=== PATIENT | female | born 1960 | race Hispanic/Latino ===

== ENCOUNTER 2021-04-19 06:00 | Day surgery (SDC) | payer MEDICAID ==
[~2021-04-19] VITALS: Ht 154.9 cm; Wt 86.2 kg
[~2021-04-19 06:00] MED LIST: ASPI-1197 PO; ATOR10TA69 PO; BACL5TAB PO; BENZ-70 PO; FOLI0.8T2 PO; MELO-106 PO; MONT-39 PO; ONDA4TAB4 PO; PANT40TA54 PO; ROPI2TAB29 PO; SENN-295 PO; vitamin d2 PO
[2021-04-19] MEDS ORDERED: 0.9%NACL 1000ML 1,000 ML IV ONE (06:20)
[2021-04-19 06:44] VITALS: BP 119/63
[2021-04-19] MEDS ORDERED: GABA-533 PO (07:13)
[2021-04-19] MEDS ORDERED: LIDOCAINE HCL 1% 20 ML VIAL ONE (07:54)
[2021-04-19] MEDS ORDERED: PROPOFOL 10 MG/ML 20ML VIAL IV ONE (07:54)
[2021-04-19 08:10] VITALS: BP 118/90
[2021-04-19 08:15] VITALS: BP 119/46
[2021-04-19 08:20] VITALS: BP 102/51
[2021-04-19 08:25] VITALS: BP 122/69
== END 2021-04-19 08:40 | disposition home or self-care (01) ==
LOC: ENDO 06:00 → DAH 06:00 → EDSTATUS 07:00 → ENDO 08:40
PROVIDERS: ATTEND Internal Medicine
DX: R13.10 Dysphagia, unspecified (principal); K29.70 Gastritis, unspecified, without bleeding; K31.84 Gastroparesis; K59.04 Chronic idiopathic constipation; J84.10 Pulmonary fibrosis, unspecified; J44.9 Chronic obstructive pulmonary disease, unspecified; K21.9 Gastro-esophageal reflux disease without esophagitis; E78.5 Hyperlipidemia, unspecified; F31.9 Bipolar disorder, unspecified; F41.9 Anxiety disorder, unspecified; Z86.010 Personal history of colon polyps; Z90.49 Acquired absence of other specified parts of digestive tract; Z90.710 Acquired absence of both cervix and uterus; Z98.890 Other specified postprocedural states; Z79.899 Other long term (current) drug therapy; Z20.822 Contact with and (suspected) exposure to COVID-19
CPT/HCPCS: 43239; 87635; 88305; 88342; A4215 ×2; A4221; A4222; A4223; A4606; A4620; A4663; C9803; J3490; J7030; J2704